=== PATIENT | female | born 1950 | race Caucasian/White ===

== ENCOUNTER 2019-10-21 18:42 | Emergency (ER) | payer OTHER ==
[~2019-10-21] VITALS: Ht 147.3 cm; Wt 52.2 kg
[2019-10-21] MEDS ORDERED: ASPIR 8181 MG PO (18:53)
[2019-10-21] MEDS ORDERED: COZAAR25 MG PO (18:53)
[2019-10-21] MEDS ORDERED: SYNTHROID50 MCG PO (18:53)
[2019-10-21] MEDS ORDERED: TOPROL XL25 M1 PO (18:53)
== END 2019-10-21 20:35 | disposition home or self-care (01) ==
LOC: ER 18:42
DX: S52.611A Displaced fracture of right ulna styloid process, initial encounter for closed fracture (principal); S52.591A Other fractures of lower end of right radius, initial encounter for closed fracture; B34.9 Viral infection, unspecified; W18.09XA Striking against other object with subsequent fall, initial encounter; Y93.89 Activity, other specified; Y92.018 Other place in single-family (private) house as the place of occurrence of the external cause; Y99.8 Other external cause status